=== PATIENT | male | born 1950 | race Caucasian/White ===

== ENCOUNTER 2018-03-23 09:56 | Day surgery (SDC) | payer MEDICARE, OTHER ==
[~2018-03-23 09:56] MED LIST: Lactated Ringers 1,000 ML IV SCH; Sodium Chloride 0.9% 10 ML Syringe FLUSH PRN
[2018-03-23] MEDS ORDERED: ceFAZolin 2 GM in Premix Bag 1 BAG IV ONE (10:30)
[2018-03-23] MEDS ORDERED: fentaNYL 100 MCG/2 ML SDV IV ONE (11:00)
[2018-03-23] MEDS ORDERED: Propofol 200 MG/20 ML SDV IV ONE (11:00)
[2018-03-23] MEDS ORDERED: Lidocaine 2% 100 MG/5 ML Syringe IVPUSH ONE (11:00)
[2018-03-23] MEDS ORDERED: Midazolam 1 MG/ML 2 ML SDV IV ONE (11:00)
[2018-03-23] MEDS ORDERED: Lidocaine 1% with EPINEPHrine 1:100,000 20 ML MDV ONE (11:29)
[2018-03-23] MEDS ORDERED: Bupivacaine 0.5% 30 ML SDV ONE (11:31)
--- NOTE | 2018-03-23 11:51 | PCM.OPNOTE ---
- General Post-Op/Procedure Note Date of Surgery/Procedure: 03/23/18 Operative Procedure(s): wide local excision Findings: 2 cm lesion with 5 mm margins for total 3 cm excised. Pre Op Diagnosis: melanoma in situ lle Post-Op Diagnosis: Same Anesthesia Technique: Local (15 ml 1 % lido with epi/0.5% buvipicaine), MAC Primary Surgeon: Niles Kidd Anesthesia Provider: Aaron Barrientos Pathology: see above Complications: None Condition: Good Free Text/Narrative:: see dictation
--- NOTE | 2018-03-23 17:42 | OR ---
DATE OF OPERATION: 03/23/2018 SURGEON: Niles Kidd MD PROCEDURE PERFORMED: Wide local excision of melanoma in situ. 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 INDICATIONS FOR PROCEDURE: This is a 67-year-old white male, who recently underwent a shave biopsy and was biopsy-proven to have a melanoma in situ. He was offered and accepted a wide local excision. DESCRIPTION OF PROCEDURE: After an excellent IV sedation was administered, a 15 mL of 1:1 mixture of 1% lidocaine with epinephrine, 0.5% bupivacaine was used to create a field block. The total lesion itself was approximately 2 cm in diameter. This included the actual shave wound itself. In addition, there was some reaction to the shave. Total diameter of the tissue was 3 cm excised. A circular incision was made down to the fascia including the subcu fat, and this was then excised and passed off the field as a specimen with the margins marked. The edges were then approximated after raising skin flaps circumferentially with a 2-0 Vicryl. After excising skin flaps and marking them, inferior and superior, the wound was closed in 2 layers with a running subcu 2-0 Vicryl and then a running subcu 3-0 Vicryl. Steri-Strips were applied. Dressing was applied. Needle, sponge, and instrument counts were reported as correct. The patient was taken to recovery room in good condition. /[id number] /MODL
== END 2018-03-23 12:29 | disposition home or self-care (01) ==
LOC: FB.SDS 09:56
PROVIDERS: ATTEND Surgery
DX: D03.72 Melanoma in situ of left lower limb, including hip (principal); F33.1 Major depressive disorder, recurrent, moderate; F41.1 Generalized anxiety disorder
CPT/HCPCS: 88305; J0690; J2001; J2250; J2704; J3010; J3490; J7120